=== PATIENT | male | born 1960 | race Hispanic/Latino ===

== ENCOUNTER 2017-11-07 08:43 | Day surgery (SDC) | payer BC ==
[2017-11-05 08:07] VITALS: BMI 36.3
[2017-11-07 09:39] VITALS: TEMP 98
[2017-11-07] MEDS ORDERED: Propofol 10 mg/ml Inj (20 ML) ONE ×5 (11:07→12:04)
[2017-11-07 12:52] VITALS: RESP 12
[2017-11-07 13:22] VITALS: O2SAT 99
[2017-11-07 13:48] VITALS: BP 147/81; PULSE 72
== END 2017-11-07 13:46 | disposition home or self-care (01) ==
LOC: C.ENDO 08:43
PROVIDERS: ATTEND Internal Medicine Gastroenterology
DX: Z12.11 Encounter for screening for malignant neoplasm of colon (principal); D12.2 Benign neoplasm of ascending colon; D12.5 Benign neoplasm of sigmoid colon; K64.1 Second degree hemorrhoids; K29.50 Unspecified chronic gastritis without bleeding; R10.13 Epigastric pain; R13.10 Dysphagia, unspecified; E11.9 Type 2 diabetes mellitus without complications; I10 Essential (primary) hypertension; Z79.84 Long term (current) use of oral hypoglycemic drugs
CPT/HCPCS: 43239; 45380; 45385; 82948; 88305; 88312; 88313; 88342; J2001; J2704